=== PATIENT | female | born 2000 | race Caucasian/White ===

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

== ENCOUNTER 2021-02-19 23:18 | Emergency (ER) | payer OTHER ==
[~2021-02-19] VITALS: Ht 170.2 cm; Wt 113.4 kg
[~2021-02-19 23:18] MED LIST changes: +BENTYL 20 MG TA20 M1 PO; +ONDANSETRON HCL4 M2 PO
[2021-02-20 00:13] LABS: ABSOLUTE BASOPHILS 0.1 thou/uL (0.0-0.2); ABSOLUTE EOSINOPHILS 0.1 thou/uL (0.0-0.7); ABSOLUTE LYMPHOCYTES 2.9 thou/uL (0.8-5.3); ABSOLUTE MONOCYTES 0.5 thou/uL (0.0-1.2); ABSOLUTE NEUTROPHILS 5.1 thou/uL (1.6-8.1); BASOPHILS 0.8 %; EOSINOPHILS 1.3 %; HEMATOCRIT 33.5 % (37.0-47.0); HEMOGLOBIN 11.1 gm/dL (12.0-15.0); LYMPHOCYTES 33.2 %; MCH 26.4 pg (26.0-34.0); MCHC 33.2 g/dL (28.0-37.0); MCV 79.6 fL (80.0-100.0); MONOCYTES 6.3 %; MPV 8.8 fl. (7.2-11.1); NUCLEATED RBCS 0 /100WBC; PLATELET COUNT* 322 thou/uL (150-400); POLYS 58.4 %; RBC 4.21 mil/uL (4.20-5.00); WBC 8.7 thou/uL (4.0-11.0)
[2021-02-20 00:17] LABS: CALCIUM 8.8 mg/dL (8.5-10.1); CREATININE 0.8 mg/dL (0.6-1.3); POTASSIUM 3.8 mmol/L (3.5-5.1)
[2021-02-20 00:22] LABS: ALBUMIN 3.9 g/dL (3.4-5.0); TOTAL BILIRUBIN 0.3 mg/dL (<0.1-1.0); TOTAL PROTEIN 7.5 g/dL (6.4-8.2)
[2021-02-20] MEDS ORDERED: HYDROCODON-ACE1 EAC8 PO (01:09)
[2021-02-20] MEDS ORDERED: ZOFRAN ODT4 MG PO (01:09)
[2021-02-20 01:28] VITALS: BP 107/64
== END 2021-02-20 01:28 | disposition home or self-care (01) ==
LOC: M.ERS 23:18
PROVIDERS: Emergency Medicine
DX: K80.50 Calculus of bile duct without cholangitis or cholecystitis without obstruction (principal)

== ENCOUNTER 2021-07-02 20:36 | Emergency (ER) | payer OTHER ==
[~2021-07-02] VITALS: Ht 170.2 cm; Wt 108.9 kg
[~2021-07-02 20:36] MED LIST changes: +HYDROCODON-ACE1 EAC8 PO; +ZOFRAN ODT4 MG PO
[2021-07-02 20:51] LABS: URINE BILIRUBIN NEGATIVE (Negative); URINE BLOOD NEGATIVE (Negative); URINE CLARITY CLEAR; URINE COLOR YELLOW; URINE GLUCOSE-RANDOM NEGATIVE (Negative); URINE KETONES NEGATIVE (Negative); URINE LEUKOCYTES-REFLEX NEGATIVE (Negative); URINE NITRITE-REFLEX NEGATIVE (Negative); URINE PROTEIN NEGATIVE (Negative); URINE SPECIFIC GRAVITY >= 1.030 (1.005-1.030); URINE UROBILINOGEN 0.2 E.U./dl (0.2-1.0)
[2021-07-02] MEDS ORDERED: DRIZALMA SPRINK20 MG PO (20:51)
[2021-07-02] MEDS ORDERED: NEURONTIN100 MG PO (20:51)
[2021-07-02] MEDS ORDERED: BUSPIRONE HCL10 MG PO (20:51)
[2021-07-02] MEDS ORDERED: PROPRANOLOL 1010 MG PO (20:52)
[2021-07-02] MEDS ORDERED: HYDROXYZINE HCL25 M2 PO (20:52)
[2021-07-02] MEDS ORDERED: LAMOTRIGINE250 MG PO (20:53)
[2021-07-02] MEDS ORDERED: ZOFRAN ODT4 MG PO (22:12)
[2021-07-02 22:49] VITALS: BP 134/80
== END 2021-07-02 22:50 | disposition home or self-care (01) ==
LOC: M.ERS 20:36
PROVIDERS: Emergency Medicine
DX: S06.0X0A Concussion without loss of consciousness, initial encounter (principal); R11.2 Nausea with vomiting, unspecified; M25.512 Pain in left shoulder; M25.511 Pain in right shoulder; R42 Dizziness and giddiness; F31.9 Bipolar disorder, unspecified; G43.909 Migraine, unspecified, not intractable, without status migrainosus; Z90.49 Acquired absence of other specified parts of digestive tract; Z79.899 Other long term (current) drug therapy; W10.8XXA Fall (on) (from) other stairs and steps, initial encounter; Y93.89 Activity, other specified; Y92.89 Other specified places as the place of occurrence of the external cause; Y99.8 Other external cause status

== ENCOUNTER 2021-08-10 20:50 | Emergency (ER) | payer OTHER ==
[~2021-08-10] VITALS: Ht 170.2 cm; Wt 112.5 kg
[~2021-08-10 20:50] MED LIST changes: +BUSPIRONE HCL10 MG PO; +DRIZALMA SPRINK20 MG PO; +HYDROXYZINE HCL25 M2 PO; +LAMOTRIGINE250 MG PO; +NEURONTIN100 MG PO; +PROPRANOLOL 1010 MG PO
[2021-08-10 21:19] LABS: URINE BILIRUBIN NEGATIVE (Negative); URINE BLOOD NEGATIVE (Negative); URINE CLARITY CLEAR; URINE COLOR YELLOW; URINE GLUCOSE-RANDOM NEGATIVE (Negative); URINE KETONES NEGATIVE (Negative); URINE LEUKOCYTES-REFLEX NEGATIVE (Negative); URINE NITRITE-REFLEX NEGATIVE (Negative); URINE PROTEIN NEGATIVE (Negative); URINE SPECIFIC GRAVITY >= 1.030 (1.005-1.030); URINE UROBILINOGEN 0.2 E.U./dl (0.2-1.0)
[2021-08-10] MEDS ORDERED: PROAIR HFA8.5 GM INH (21:26)
[2021-08-10] MEDS ORDERED: PREDNISONE50 MG PO (21:26)
[2021-08-10] MEDS ORDERED: HYDROCODONE-CH115 ML PO (21:26)
[2021-08-10] MEDS ORDERED: ZOFRAN ODT4 MG PO (21:26)
[2021-08-10 21:38] LABS: INFLUENZA A ANTIGEN Negative (Negative); INFLUENZA B ANTIGEN Negative (Negative)
[2021-08-10 22:08] VITALS: BP 142/77
== END 2021-08-10 22:08 | disposition home or self-care (01) ==
LOC: M.ERS 20:50
PROVIDERS: Emergency Medicine
DX: J06.9 Acute upper respiratory infection, unspecified (principal); Z20.822 Contact with and (suspected) exposure to COVID-19; Z90.49 Acquired absence of other specified parts of digestive tract; Z90.89 Acquired absence of other organs; Z79.899 Other long term (current) drug therapy

== ENCOUNTER 2021-09-17 22:47 | Emergency (ER) | payer OTHER ==
[~2021-09-17] VITALS: Ht 170.2 cm; Wt 112.5 kg
[~2021-09-17 22:47] MED LIST changes: +HYDROCODONE-CH115 ML PO; +PREDNISONE50 MG PO; +PROAIR HFA8.5 GM INH
[2021-09-17 23:18] VITALS: BP 153/86
[2021-09-18] MEDS ORDERED: ZOFRAN ODT4 MG PO (00:07)
[2021-09-18 00:20] LABS: INFLUENZA A ANTIGEN Negative (Negative); INFLUENZA B ANTIGEN Negative (Negative)
== END 2021-09-18 00:30 | disposition home or self-care (01) ==
LOC: M.ERS 22:47
PROVIDERS: Nurse Practitioner Family
DX: B34.9 Viral infection, unspecified (principal); F31.9 Bipolar disorder, unspecified; J45.909 Unspecified asthma, uncomplicated; Z90.89 Acquired absence of other organs; Z90.49 Acquired absence of other specified parts of digestive tract; Z79.51 Long term (current) use of inhaled steroids; Z79.899 Other long term (current) drug therapy; Z79.891 Long term (current) use of opiate analgesic